=== PATIENT | male | born 1975 | race African-American/Black ===

== ENCOUNTER → 2020-07-06 | Day surgery (SDC) | payer OTHER, MEDICAID ==
[2020-06-30 14:18] LABS: Eosinophils # (auto) 0.1 10 ^3/uL (0-0.8); Eosinophils % (auto) 0.7 % (0.0-7.0); Mean Corpuscular Hemoglobin 27.4 pg (28.0-32.0); Monocytes # (auto) 0.7 10 ^3/uL (0-1.3); Nucleated Red Blood Cells % 0.2 %
[2020-06-30 14:20] LABS: Basophils # (auto) 0 10 ^3/uL (0-0.2); Basophils % (auto) 0.5 % (0.0-2.0); Hematocrit 50.1 % (41.0-53.0); Hemoglobin 16.8 g/dL (13.5-17.5); Lymphocytes # (auto) 3.2 10 ^3/uL (0.4-5.4); Lymphocytes % (auto) 39.2 % (10.0-50.0); Mean Corpuscular Hgb Conc. 33.5 g/dL (32.0-36.0); Mean Corpuscular Volume 81.6 fL (80.0-100.0); Monocytes % (auto) 8.4 % (0.0-12.0); Neutrophils # (auto) 4.1 10 ^3/uL (1.6-8.6); Neutrophils % (auto) 51.2 % (37.0-80.0); Platelet Count (auto) 231 10^3/uL (140-450); Red Blood Cells 6.14 10^6/uL (4.5-5.90); Red Cell Distribution Width 14.2 % (11.8-14.3)
[2020-06-30 14:25] LABS: Urine Bacteria NONE SEEN /hpf (None Seen); Urine Blood Negative /uL (Negative); Urine WBC 6 /hpf (0 - 3)
[2020-06-30 14:26] LABS: INR 1.04 (0.9-1.15); Partial Thromboplastin Time 30.5 sec (23.0-31.2)
[2020-06-30 14:28] LABS: Albumin 4.2 g/dL (3.4-5.0); Calcium 8.8 mg/dL (8.5-10.1)
[2020-06-30 14:32] LABS: BUN/Creatinine Ratio 9.9; Bilirubin, Total 0.3 mg/dL (0.2-1.0); Total Protein 8.1 g/dL (6.4-8.2)
[~2020-07-06] VITALS: Ht 177.8 cm; Wt 106.6 kg
[~2020-07-06] MED LIST: ASPI81CH39; IBUP200C3 PO; LIDOCAINE 1% HCL (LOCAL ANESTH.) INJ 20ML MDV ONE; LIDOCAINE W/ EPINEPHRINE 1% 20ML VIAL ONE; MIDAZOLAM HCL 1MG/1ML-2 ML VIAL ONE; NEOMYCIN-BACITRACIN-POLYM 15GM TOP OINT TOP ONE; ONDANSETRON HCL 4 MG/2 ML VIAL ONE; PROPOFOL 10 MG/ML 20 ML IV ONE; SODIUM CHLORIDE LOCK 10 ML ONE; SUCCINYLCHOLINE CHLORIDE 20 MG/ML 10ML VIAL IV ONE; ceFAZolin 1GM/50ML 50 ML IV ONE; fentaNYL CITRATE 100 MCG/2 ML VL ONE
[2020-07-06 09:50] VITALS: BP 109/65
== END | disposition home or self-care (01) ==
LOC: SUR 07:33
PROVIDERS: ATTEND Urology
DX: Z30.2 Encounter for sterilization (principal); E66.9 Obesity, unspecified; Z20.828 Contact with and (suspected) exposure to other viral communicable diseases; Z79.899 Other long term (current) drug therapy; Z98.890 Other specified postprocedural states; Z68.32 Body mass index [BMI] 32.0-32.9, adult
CPT/HCPCS: 36415; 55250; 80053; 81001; 85025; 85610; 85730; 88302; J0330; J0690; J2001; J2250; J2405; J2704; J3010; U0003

== ENCOUNTER 2020-09-15 13:03 | Inpatient (IN) | payer OTHER, MEDICAID ==
[~2020-09-15] VITALS: Ht 182.9 cm; Wt 100.8 kg
[~2020-09-15 13:03] MED LIST changes: -LIDOCAINE 1% HCL (LOCAL ANESTH.) INJ 20ML MDV ONE; -LIDOCAINE W/ EPINEPHRINE 1% 20ML VIAL ONE; -MIDAZOLAM HCL 1MG/1ML-2 ML VIAL ONE; -NEOMYCIN-BACITRACIN-POLYM 15GM TOP OINT TOP ONE; -ONDANSETRON HCL 4 MG/2 ML VIAL ONE; -PROPOFOL 10 MG/ML 20 ML IV ONE; -SODIUM CHLORIDE LOCK 10 ML ONE; -SUCCINYLCHOLINE CHLORIDE 20 MG/ML 10ML VIAL IV ONE; -ceFAZolin 1GM/50ML 50 ML IV ONE; -fentaNYL CITRATE 100 MCG/2 ML VL ONE
[2020-09-15 14:27] LABS: Basophils # (auto) 0 10 ^3/uL (0-0.2); Basophils % (auto) 0.5 % (0.0-2.0); Eosinophils # (auto) 0 10 ^3/uL (0-0.8); Hematocrit 44.4 % (41.0-53.0); Hemoglobin 14.9 g/dL (13.5-17.5); Lymphocytes # (auto) 1.2 10 ^3/uL (0.4-5.4); Lymphocytes % (auto) 19.8 % (10.0-50.0); Mean Corpuscular Hemoglobin 27.1 pg (28.0-32.0); Mean Corpuscular Hgb Conc. 33.6 g/dL (32.0-36.0); Mean Corpuscular Volume 80.7 fL (80.0-100.0); Monocytes # (auto) 0.4 10 ^3/uL (0-1.3); Monocytes % (auto) 7.5 % (0.0-12.0); Neutrophils # (auto) 4.2 10 ^3/uL (1.6-8.6); Neutrophils % (auto) 72.2 % (37.0-80.0); Nucleated Red Blood Cells % 0.2 %; Platelet Count (auto) 134 10^3/uL (140-450); Red Cell Distribution Width 14.4 % (11.8-14.3); White Blood Cell 5.8 10^3/uL (4.4-10.8)
[2020-09-15 14:46] LABS: Albumin 3.4 g/dL (3.4-5.0)
[2020-09-15 14:50] LABS: Bilirubin, Total 0.4 mg/dL (0.2-1.0); Total Protein 7.7 g/dL (6.4-8.2)
[2020-09-15] MEDS ORDERED: DexAMETHasone 4 MG TAB PO ONE (15:45)
[2020-09-15] MEDS ORDERED: SODIUM CHLORIDE 0.9% 1,000 ML IVB ONE (15:45)
[2020-09-15] MEDS ORDERED: AZITHROMYCIN 500MG/ 250ML 250 ML IV ONE (15:45)
[2020-09-15] MEDS ORDERED: DexAMETHasone SOD PHOS 10MG/1ML VIAL INJ ONE (15:55)
[2020-09-15] MEDS ORDERED: DexAMETHasone SOD PHOS 10MG/1ML VIAL INJ IV ONE (16:15)
[2020-09-15 18:33] LABS: INR 1.08 (0.9-1.15); Partial Thromboplastin Time 36.7 sec (23.0-31.2)
[2020-09-15 18:40] LABS: Magnesium 2.2 mg/dL (1.6-2.6)
[2020-09-15] MEDS ORDERED: MORPHINE SULF INJ 2 MG/ML SYRINGE 1ML IV PRN ×2 (19:30→23:30)
[2020-09-15] MEDS ORDERED: NITROGLYCERIN 0.4 MG SL TAB SL PRN ×2 (19:30→23:30)
[2020-09-15] MEDS ORDERED: ENOXAPARIN SOD 100 MG/1 ML SYRINGE SC ONE (23:30)
[2020-09-15] MEDS ORDERED: ONDANSETRON HCL 4 MG/2 ML VIAL IV PRN (23:30)
[2020-09-15] MEDS ORDERED: DOCUSATE SOD 100 MG CAP PO PRN (23:30)
[2020-09-15] MEDS ORDERED: REMDESIVIR PER PHARMACY 0 ML IV SCH (23:30)
[2020-09-15] MEDS ORDERED: ALUM & MAG HYDROX-SIMETH LIQ(MAALOX) 30 ML PO PRN (23:30)
[2020-09-15] MEDS ORDERED: VANCOMYCIN PER PHARMACY 0 MG IV SCH (23:30)
[2020-09-15] MEDS ORDERED: PIPERACILLIN-TAZOB 3.375GM 100 ML IV ONE (23:30)
[2020-09-15] MEDS ORDERED: VANCOMYCIN 1GM/250ML 250 ML IV ONE (23:45)
[2020-09-16 01:01] LABS: Basophils # (auto) 0 10 ^3/uL (0-0.2); Basophils % (auto) 0.2 % (0.0-2.0); Eosinophils # (auto) 0 10 ^3/uL (0-0.8); Hematocrit 42.8 % (41.0-53.0); Hemoglobin 13.9 g/dL (13.5-17.5); Lymphocytes # (auto) 0.8 10 ^3/uL (0.4-5.4); Lymphocytes % (auto) 13.4 % (10.0-50.0); Mean Corpuscular Hemoglobin 26.5 pg (28.0-32.0); Mean Corpuscular Hgb Conc. 32.5 g/dL (32.0-36.0); Mean Corpuscular Volume 81.5 fL (80.0-100.0); Monocytes # (auto) 0.4 10 ^3/uL (0-1.3); Monocytes % (auto) 7.4 % (0.0-12.0); Neutrophils # (auto) 4.6 10 ^3/uL (1.6-8.6); Nucleated Red Blood Cells % 0.1 %; Platelet Count (auto) 145 10^3/uL (140-450); Red Blood Cells 5.25 10^6/uL (4.5-5.90); Red Cell Distribution Width 14.6 % (11.8-14.3); White Blood Cell 5.8 10^3/uL (4.4-10.8)
[2020-09-16 03:01] LABS: Calcium 7.8 mg/dL (8.5-10.1); Magnesium 2.5 mg/dL (1.6-2.6); Potassium 4.4 mmol/L (3.5-5.1)
[2020-09-16 03:03] LABS: BUN/Creatinine Ratio 8.3; Bilirubin, Total 0.3 mg/dL (0.2-1.0)
[2020-09-16 03:35] LABS: Cholesterol 125 mg/dL (< 200); HDL Cholesterol 32 mg/dL (40-59); LDL Cholesterol 73 mg/dL (< 100); Triglycerides 107 mg/dL (< 150)
[2020-09-16 03:50] LABS: CRP High Sensitivity 9.8924 mg/dL (< 0.3)
[2020-09-16] MEDS: FUROSEMIDE 20 MG/2 ML VIAL IV SCH ×2 (05:34→17:58)
[2020-09-16] MEDS: PIPERACILLIN-TAZOB 3.375GM 100 ML IV SCH ×3 (05:35→17:59)
[2020-09-16 06:20] LABS: Urine Bacteria NONE SEEN /hpf (None Seen); Urine Blood TRACE /uL (Negative); Urine Specific Gravity 1.015 (1.001-1.035); Urine WBC 2 /hpf (0 - 3)
[2020-09-16 06:36] LABS: Alcohol, Urine < 3.0 mg/dL (0-10); Amphetamine Screen, Urine NEGATIVE (NEGATIVE); Barbiturate Scree,Urine NEGATIVE (NEGATIVE); Benzodiazephine Screen, Urine NEGATIVE (NEGATIVE); Cannabinoid Screen, Urine POSITIVE (NEGATIVE); Cocaine Screen, Urine NEGATIVE (NEGATIVE); Opiate Scree,Urine POSITIVE (NEGATIVE); Phencyclidine Screen, Urine NEGATIVE (NEGATIVE)
[2020-09-16 08:30] LABS: Basophils # (auto) 0 10 ^3/uL (0-0.2); Basophils % (auto) 0.1 % (0.0-2.0); Eosinophils # (auto) 0 10 ^3/uL (0-0.8); Hemoglobin 13.9 g/dL (13.5-17.5); Lymphocytes # (auto) 0.8 10 ^3/uL (0.4-5.4)
[2020-09-16 08:33] LABS: Hematocrit 41.9 % (41.0-53.0); Lymphocytes % (auto) 12.9 % (10.0-50.0); Mean Corpuscular Hemoglobin 26.6 pg (28.0-32.0); Mean Corpuscular Hgb Conc. 33.2 g/dL (32.0-36.0); Mean Corpuscular Volume 80.2 fL (80.0-100.0); Monocytes # (auto) 0.5 10 ^3/uL (0-1.3); Monocytes % (auto) 8.7 % (0.0-12.0); Neutrophils % (auto) 78.3 % (37.0-80.0); Nucleated Red Blood Cells % 0.2 %; Platelet Count (auto) 147 10^3/uL (140-450); Red Blood Cells 5.22 10^6/uL (4.5-5.90); Red Cell Distribution Width 14.5 % (11.8-14.3); White Blood Cell 6.3 10^3/uL (4.4-10.8)
[2020-09-16 08:55] LABS: Potassium 4.2 mmol/L (3.5-5.1)
[2020-09-16 09:02] LABS: Albumin 2.8 g/dL (3.4-5.0); BUN/Creatinine Ratio 9.3; Bilirubin, Total 0.5 mg/dL (0.2-1.0); Calcium 7.9 mg/dL (8.5-10.1); Total Protein 6.8 g/dL (6.4-8.2)
[2020-09-16] MEDS: DexAMETHasone SOD PHOS 10MG/1ML VIAL INJ IV SCH (10:15)
[2020-09-16] MEDS: ASPirin 81 mg TAB PO SCH (10:18)
[2020-09-16] MEDS: FAMOTIDINE (10MG/ML) 2ML VL IV SCH ×2 (10:18→21:55)
[2020-09-16] MEDS: ASCORBIC ACID 1,000 MG TAB PO SCH (10:18)
[2020-09-16] MEDS: ENOXAPARIN SOD 100 MG/1 ML SYRINGE SC SCH ×2 (10:19→22:08)
[2020-09-16] MEDS: CHOLECALCIFEROL (VITD3) 2,000 UNIT CAP PO SCH (10:19)
[2020-09-16] MEDS: BUDESONIDE (INHALATION) 180 MCG IH IN SCH ×2 (10:26→21:52)
[2020-09-16] MEDS: ALBUTEROL SULF HFA 90MCG INH 200DOSE IN PRN ×2 (10:26→21:52)
[2020-09-16] MEDS: VANCOMYCIN 1GM/250ML 250 ML IV SCH ×2 (11:56→21:00)
[2020-09-16] MEDS ORDERED: REMDESIVIR 200 MG in NS 210ml LOADING DOSE ADULT IV ONE (15:00)
[2020-09-16] MEDS: MORPHINE SULF INJ 2 MG/ML SYRINGE 1ML IV PRN (21:56)
[2020-09-16] MEDS: ATORVASTATIN 20 MG TAB PO SCH (22:08)
[2020-09-16] MEDS: ACETAMINOPHEN 500 MG TAB PO PRN (22:23)
[2020-09-17] VITALS (8 sets, daily range): BP systolic 93–114; BP diastolic 53–67
--- NOTE | 2020-09-17 00:34 | NUR ---
Telemetry admit from ER JOLENE SPENCE admitted to Telemetry unit after SBAR received. Patient oriented to José Miguel Fuller, primary RN, unit, room, bed, and unit policies regarding patient care and visiting hours. Patient now on continuous telemetry monitoring, tele box # [[id number]] and telemetry reading on arrival to unit is [SR 82]. Patient placed on bedside oxygen, weighed by bedscale and encouraged to call if they need something. All questions and concerns addressed, patient verbalized understanding. Note: []
[2020-09-17] MEDS: PIPERACILLIN-TAZOB 3.375GM 100 ML IV SCH ×4 (00:55→18:19)
[2020-09-17] MEDS ORDERED: IBUP200C3 PO (01:40)
[2020-09-17] MEDS ORDERED: ASPI-543 PO (01:40)
--- NOTE | 2020-09-17 02:28 | NUR ---
HOSPITALIST Called/paged SECRET SERVICE AGENT ISABELLA called re PATIENT C/O CP @ 05/08, VITALS: BP 115/54, HR 126, RR 24, O2 SAT 92 ON 4L/NC. EKG DONE, SHOWED AFIB MORPHINE GIVEN FOR PAIN, PATIENT FEELING BETTER AFTER THAT. ORDER RECEIVED, LABETALOL 5MG IV ONCE. ORDER READ BACK AND VERIFIED. WILL CARRY IT OUT. Continue care.
[2020-09-17] MEDS: MORPHINE SULF INJ 2 MG/ML SYRINGE 1ML IV PRN (02:36)
--- NOTE | 2020-09-17 02:39 | NUR ---
CALLED TELE MONITOR AND CONFIRMED THAT PATIENT'S A FIB STARTED SINCE 139.
[2020-09-17] MEDS ORDERED: LABETALOL HCL 5 MG/ML 4ML SYRINGE IV ONE (02:45)
[2020-09-17] MEDS: FUROSEMIDE 20 MG/2 ML VIAL IV SCH ×2 (06:03→18:33)
--- NOTE | 2020-09-17 07:45 | NUR ---
Opening Shift Note Assumed care of patient, awake and alert. Pt states he is short of breath as he just went to the bathroom. Stayed in room with patient for five minutes until he restored his breathing pattern back to normal, and pt states he feels better now. Instructed on POC and to calling for assist PRN, will continue to monitor for changes Q1hr and PRN.
--- NOTE | 2020-09-17 08:30 | NUR ---
PT O2 SAT 92% ON 4L. PT RESTING IN BED.
[2020-09-17] MEDS: BUDESONIDE (INHALATION) 180 MCG IH IN SCH ×2 (08:31→19:00)
[2020-09-17] MEDS: VANCOMYCIN 1GM/250ML 250 ML IV SCH ×2 (09:26→20:46)
[2020-09-17] MEDS: ACETAMINOPHEN 500 MG TAB PO PRN (09:27)
[2020-09-17] MEDS: DexAMETHasone SOD PHOS 10MG/1ML VIAL INJ IV SCH (09:30)
[2020-09-17] MEDS: FAMOTIDINE (10MG/ML) 2ML VL IV SCH ×2 (09:30→21:50)
[2020-09-17] MEDS: ASPirin 81 mg TAB PO SCH (09:31)
[2020-09-17] MEDS: ENOXAPARIN SOD 100 MG/1 ML SYRINGE SC SCH ×2 (09:31→21:50)
[2020-09-17] MEDS: CHOLECALCIFEROL (VITD3) 2,000 UNIT CAP PO SCH (09:32)
[2020-09-17] MEDS: ASCORBIC ACID 1,000 MG TAB PO SCH (09:32)
[2020-09-17] MEDS: ALBUTEROL SULF HFA 90MCG INH 200DOSE IN PRN ×2 (10:45→19:00)
[2020-09-17] MEDS ORDERED: METOPROLOL TARTRATE 1MG/1ML-5ML VIAL IV PRN (11:45)
[2020-09-17 12:15] LABS: Basophils # (auto) 0 10 ^3/uL (0-0.2); Basophils % (auto) 0.1 % (0.0-2.0); Eosinophils # (auto) 0 10 ^3/uL (0-0.8); White Blood Cell 9.8 10^3/uL (4.4-10.8)
[2020-09-17 12:17] LABS: Hematocrit 41.2 % (41.0-53.0); Hemoglobin 13.7 g/dL (13.5-17.5); Lymphocytes # (auto) 0.9 10 ^3/uL (0.4-5.4); Lymphocytes % (auto) 9.6 % (10.0-50.0); Mean Corpuscular Hemoglobin 27.2 pg (28.0-32.0); Mean Corpuscular Hgb Conc. 33.3 g/dL (32.0-36.0); Mean Corpuscular Volume 81.6 fL (80.0-100.0); Monocytes # (auto) 0.7 10 ^3/uL (0-1.3); Monocytes % (auto) 6.7 % (0.0-12.0); Neutrophils # (auto) 8.2 10 ^3/uL (1.6-8.6); Neutrophils % (auto) 83.6 % (37.0-80.0); Platelet Count (auto) 181 10^3/uL (140-450); Red Blood Cells 5.05 10^6/uL (4.5-5.90); Red Cell Distribution Width 14.5 % (11.8-14.3)
[2020-09-17 12:26] LABS: Anion Gap 7 (5-15); Blood Urea Nitrogen 14 mg/dL (7-18); Calcium 7.8 mg/dL (8.5-10.1); Carbon Dioxide 27 mmol/L (21-32); Chloride 103 mmol/L (98-107); Glucose 114 mg/dL (74-106); Magnesium 2.6 mg/dL (1.6-2.6); Sodium 137 mmol/L (136-145)
[2020-09-17 12:32] LABS: Alanine Aminotransferase 80 U/L (16-61); Alkaline Phosphatase 50 U/L (45-117); Aspartate Aminotransferase 80 U/L (15-37); BUN/Creatinine Ratio 10.4; Bilirubin, Total 0.5 mg/dL (0.2-1.0); GFR African American 74 mL/min; GFR Non-African American 61 mL/min; Total Protein 7.1 g/dL (6.4-8.2)
[2020-09-17] MEDS: REMDESIVIR 100 MG in SODIUM CHL 0.9% 250 ML IV SCH (15:56)
--- NOTE | 2020-09-17 19:20 | NUR ---
CHANGE OF SHIFT REPORT GIVEN TO ENVIRONMENTAL SERVICES TECH RN. IV ZOSYN INFUSING AT THIS TIME,ENVIRONMENTAL SERVICES TECH RN TO GIVE DOSE OF VANCO ONCE ZOSYN IS COMPLETE. PT RESTING AT THIS TIME, PT STABLE.
--- NOTE | 2020-09-17 19:35 | NUR ---
RECEIVED PATIENT FROM DAY SHIFT RN. PATIENT RESTING IN BED. NO S/S OF DISTRESS NOTED. C/O PAIN ON HIS LEFT ARM @ 8/10. NO PAIN MEDICATION REQUESTED AT THIS TIME. PATIENT UNDERSTOOD HE COULD ASK PAIN MEDICATION IF HE COULD NOT TOLERATE THE PAIN. POC INSTRUCTED AND ENCOURAGED PATENT TO CALL FOR ELECTRICAL CONTINUITY INSPECTOR IF NEEDED. BED IN LOWEST LOCKED POSITION WITH SIDE RAILS UP X 2. CALL WILSON WITHIN REACH. ALARM ON. CONTINUE TO MONITOR FOR CHANGES Q1H AND PRN
[2020-09-17] MEDS: ATORVASTATIN 20 MG TAB PO SCH (21:50)
[2020-09-17] MEDS: HYDROcodone-ACET 5/325MG TAB PO PRN (21:51)
--- NOTE | 2020-09-17 21:51 | NUR ---
PATIENT REQUESTED TO HAVE NORCO FOR PAIN @ 05/08. MEDICATED PATIENT ORDERED. CONTINUE TO MONITOR.
--- NOTE | 2020-09-17 22:30 | NUR ---
REASSESSED PAIN 02/05. CONTINUE TO MONITOR.
[2020-09-18] MEDS: PIPERACILLIN-TAZOB 3.375GM 100 ML IV SCH ×4 (00:03→15:16)
[2020-09-18] MEDS: VANCOMYCIN 1GM/250ML 250 ML IV SCH ×2 (04:39→12:10)
[2020-09-18 05:27] VITALS: BP 115/59
[2020-09-18] MEDS: FUROSEMIDE 20 MG/2 ML VIAL IV SCH (06:06)
[2020-09-18] MEDS: BUDESONIDE (INHALATION) 180 MCG IH IN SCH ×2 (06:33→18:25)
[2020-09-18] MEDS: ALBUTEROL SULF HFA 90MCG INH 200DOSE IN PRN ×2 (06:33→18:25)
[2020-09-18 08:37] VITALS: BP 101/65
[2020-09-18] MEDS ORDERED: POTASSIUM CHL 20 Meq TABLET PO ONE (09:15)
[2020-09-18] MEDS: ENOXAPARIN SOD 100 MG/1 ML SYRINGE SC SCH ×2 (09:48→21:27)
[2020-09-18] MEDS: DexAMETHasone SOD PHOS 10MG/1ML VIAL INJ IV SCH (09:48)
[2020-09-18] MEDS: FAMOTIDINE (10MG/ML) 2ML VL IV SCH ×2 (09:48→21:27)
[2020-09-18] MEDS: CHOLECALCIFEROL (VITD3) 2,000 UNIT CAP PO SCH (09:48)
[2020-09-18] MEDS: ASCORBIC ACID 1,000 MG TAB PO SCH (09:49)
[2020-09-18] MEDS: ASPirin 81 mg TAB PO SCH (09:49)
[2020-09-18] MEDS: LORazepam 0.5 MG TAB PO PRN (10:27)
[2020-09-18] MEDS: HYDROcodone-ACET 5/325MG TAB PO PRN ×2 (10:28→21:37)
--- NOTE | 2020-09-18 12:10 | NUR ---
SPOKE WITH PHARMACIST DANIEL: EDUCATED THAT INDICATION FOR ZOSYN AND VANCO ARE NOT MET, NO POSITIVE CULTURES, OR S/S OF PNEUMONIA. COVID NOT AND INDICATION. INFORMED PATIENT, REFUSED. WILL LET MD KAMARA KNOW.
[2020-09-18 14:23] VITALS: BP 115/79
[2020-09-18] MEDS: REMDESIVIR 100 MG in SODIUM CHL 0.9% 250 ML IV SCH (15:30)
[2020-09-18 16:52] VITALS: BP 116/69
--- NOTE | 2020-09-18 19:50 | NUR ---
OPENING NOTE Received report from day shift RN. Patient is A&O X's 4 with no s/s of distress. Patient is on 5L NC at this time. Patient denies any SOB at this time, only with exertion. Educated patient on POC/to prone as tolerated/use IS that is at bedside and to use call light when in need of any assistance. Patient verbalized understanding. Bed is in lowest/locked position with side rails up X's 2 and call light is within reach of patient.
[2020-09-18] MEDS: ATORVASTATIN 20 MG TAB PO SCH (21:27)
[2020-09-18 22:00] VITALS: BP 123/85
[2020-09-19] VITALS (9 sets, daily range): BP systolic 101–127; BP diastolic 49–80
[2020-09-19] MEDS: PIPERACILLIN-TAZOB 3.375GM 100 ML IV SCH ×4 (06:00→19:47)
[2020-09-19 07:26] LABS: Basophils # (auto) 0 10 ^3/uL (0-0.2); Eosinophils # (auto) 0 10 ^3/uL (0-0.8); Monocytes # (auto) 1.1 10 ^3/uL (0-1.3)
[2020-09-19 07:29] LABS: Basophils % (auto) 0.1 % (0.0-2.0); Hematocrit 41.7 % (41.0-53.0); Lymphocytes % (auto) 12.7 % (10.0-50.0); Mean Corpuscular Hemoglobin 26.9 pg (28.0-32.0); Mean Corpuscular Hgb Conc. 33.5 g/dL (32.0-36.0); Mean Corpuscular Volume 80.1 fL (80.0-100.0); Monocytes % (auto) 13.7 % (0.0-12.0); Neutrophils # (auto) 5.9 10 ^3/uL (1.6-8.6); Neutrophils % (auto) 73.5 % (37.0-80.0); Nucleated Red Blood Cells % 0.3 %; Platelet Count (auto) 260 10^3/uL (140-450); Red Blood Cells 5.21 10^6/uL (4.5-5.90); Red Cell Distribution Width 14.1 % (11.8-14.3); White Blood Cell 8.1 10^3/uL (4.4-10.8)
[2020-09-19 07:40] LABS: Potassium 3.8 mmol/L (3.5-5.1)
[2020-09-19 07:55] LABS: Albumin 2.7 g/dL (3.4-5.0); BUN/Creatinine Ratio 15.5; Bilirubin, Total 0.4 mg/dL (0.2-1.0); CRP High Sensitivity 3.65 mg/dL (< 0.3); Calcium 8.2 mg/dL (8.5-10.1); Total Protein 6.8 g/dL (6.4-8.2)
[2020-09-19] MEDS: FAMOTIDINE (10MG/ML) 2ML VL IV SCH ×2 (10:29→22:02)
[2020-09-19] MEDS: DexAMETHasone SOD PHOS 10MG/1ML VIAL INJ IV SCH (10:29)
[2020-09-19] MEDS: ASCORBIC ACID 1,000 MG TAB PO SCH (10:31)
[2020-09-19] MEDS: FUROSEMIDE 20 MG/2 ML VIAL IV SCH (10:31)
[2020-09-19] MEDS: ASPirin 81 mg TAB PO SCH (10:32)
[2020-09-19] MEDS: CHOLECALCIFEROL (VITD3) 2,000 UNIT CAP PO SCH (10:32)
[2020-09-19] MEDS: ENOXAPARIN SOD 100 MG/1 ML SYRINGE SC SCH ×2 (10:34→22:03)
--- NOTE | 2020-09-19 11:28 | NUR ---
Assessment Patient is a 44 year old male, who is alert and oriented, his cognitive abilities are intact. Patient states that he can do all ADL's and ambulate independently. Patient stated that he unemployed and receives docplanner as income. Patient states that he lives with his , children and mother, he has plans to return home post discharge. Patient stated that his will provide transportation post discharge. Patient stated that his and mother are his support system. Patient is receptive to receive Advance Directive forms. Discharge planning: Patient will return home post discharge, patient will follow up care with his PCP post discharge. SW will provide Advance Directive prior to discharge. There are no other discharge needs to address at the moment. Addendum: 09/19/20 at 1136 by JERSEY MARIN Amended: Links added.
--- NOTE | 2020-09-19 11:29 | NUR ---
Nutrition Assessment Est energy needs 2701-9848 kcal (14-18 kcal/kg BW 102.4kg) Est protein needs 81-97g (1-1.2g/kg IBW 80.9kg) Will monitor and reassess prn. Addendum: 09/19/20 at [address] Amended: Links added.
--- NOTE | 2020-09-19 14:18 | NUR ---
DOCTOR TURNER AT BEDSIDE DISCUSSING POC PATIENT VERBALIZES UNDERSTANDING AND AGREES WITH POC.
[2020-09-19] MEDS: HYDROcodone-ACET 5/325MG TAB PO PRN (16:18)
[2020-09-19] MEDS: REMDESIVIR 100 MG in SODIUM CHL 0.9% 250 ML IV SCH (17:45)
[2020-09-19] MEDS: Ensure HIGH Protein Chocolate 8oz Bottle PO SCH (18:00)
--- NOTE | 2020-09-19 19:00 | NUR ---
REMDESIVIR V/S ZIB251/49 HR 90 15 MINUTE-102/65 75 HR POST 117/67 HR 80 NO S/S OF DISTRESS NOTED
[2020-09-19] MEDS: BUDESONIDE (INHALATION) 180 MCG IH IN SCH (19:27)
--- NOTE | 2020-09-19 19:27 | NUR ---
PT SEEN AT THIS TIME. ALB 2 PUFFS GIVEN VIA SPACER AND PULM 360 MCG GIVEN WITH NO ADVERSE REACTIONS. PT TOLERATED WELL. HR 97 POX 98 RR 22.
[2020-09-19] MEDS: ALBUTEROL SULF HFA 90MCG INH 200DOSE IN PRN (19:34)
[2020-09-19] MEDS: ATORVASTATIN 20 MG TAB PO SCH (22:03)
[2020-09-20] MEDS: PIPERACILLIN-TAZOB 3.375GM 100 ML IV SCH ×4 (00:51→18:49)
[2020-09-20 04:00] VITALS: BP 116/67
[2020-09-20] MEDS: ALBUTEROL SULF HFA 90MCG INH 200DOSE IN PRN ×2 (06:47→19:43)
[2020-09-20] MEDS: BUDESONIDE (INHALATION) 180 MCG IH IN SCH ×2 (06:47→19:43)
[2020-09-20] MEDS: Ensure HIGH Protein Chocolate 8oz Bottle PO SCH ×3 (08:00→18:00)
[2020-09-20 09:00] VITALS: BP 110/74
[2020-09-20] MEDS: FAMOTIDINE (10MG/ML) 2ML VL IV SCH ×2 (10:17→21:18)
[2020-09-20] MEDS: DexAMETHasone SOD PHOS 10MG/1ML VIAL INJ IV SCH (10:17)
[2020-09-20] MEDS: CHOLECALCIFEROL (VITD3) 2,000 UNIT CAP PO SCH (10:18)
[2020-09-20] MEDS: FUROSEMIDE 20 MG/2 ML VIAL IV SCH (10:18)
[2020-09-20] MEDS: ASPirin 81 mg TAB PO SCH (10:18)
[2020-09-20] MEDS: ASCORBIC ACID 1,000 MG TAB PO SCH (10:19)
[2020-09-20] MEDS: ENOXAPARIN SOD 100 MG/1 ML SYRINGE SC SCH ×2 (10:20→21:17)
[2020-09-20] MEDS ORDERED: ACETAMINOPHEN 500 MG TAB PO PRN (11:45)
[2020-09-20 13:00] VITALS: BP 101/63
[2020-09-20] MEDS: REMDESIVIR 100 MG in SODIUM CHL 0.9% 250 ML IV SCH (15:45)
[2020-09-20 17:00] VITALS: BP 115/68
--- NOTE | 2020-09-20 17:10 | NUR ---
REMDESIVIR V/S PRE- 124/75 HR 88 15 MINUTES-115/68 80 HR POST REMDESIVIR 107/60 HR 78 NO S/S OF DISTRESS NOTED
[2020-09-20 21:00] VITALS: BP 119/77
[2020-09-20] MEDS: OXYCODONE W/ ACETAMINOPHEN 5/325MG TABLET PO PRN (21:18)
[2020-09-20] MEDS: ATORVASTATIN 20 MG TAB PO SCH (21:18)
[2020-09-21] MEDS: PIPERACILLIN-TAZOB 3.375GM 100 ML IV SCH ×3 (01:31→13:42)
[2020-09-21] MEDS: OXYCODONE W/ ACETAMINOPHEN 5/325MG TABLET PO PRN ×2 (06:18→10:18)
--- NOTE | 2020-09-21 06:39 | NUR ---
Patient refused pain medication. Patient said he will take medication later after breakfast . Will continue to monitor.
[2020-09-21] MEDS: BUDESONIDE (INHALATION) 180 MCG IH IN SCH ×2 (07:26→21:14)
[2020-09-21] MEDS: ALBUTEROL SULF HFA 90MCG INH 200DOSE IN PRN ×2 (07:26→21:14)
[2020-09-21 07:47] LABS: Calcium 8.7 mg/dL (8.5-10.1); Potassium 3.5 mmol/L (3.5-5.1)
[2020-09-21 07:49] LABS: BUN/Creatinine Ratio 13.6
[2020-09-21 08:00] VITALS: BP 97/52
[2020-09-21] MEDS: Ensure HIGH Protein Chocolate 8oz Bottle PO SCH ×3 (08:00→18:00)
[2020-09-21 08:05] LABS: Basophils # (auto) 0 10 ^3/uL (0-0.2); Eosinophils # (auto) 0 10 ^3/uL (0-0.8); Lymphocytes # (auto) 1.6 10 ^3/uL (0.4-5.4); Nucleated Red Blood Cells % 0.2 %; Red Cell Distribution Width 14.3 % (11.8-14.3)
[2020-09-21 08:08] LABS: Basophils % (auto) 0.1 % (0.0-2.0); Hematocrit 44.2 % (41.0-53.0); Hemoglobin 14.9 g/dL (13.5-17.5); Lymphocytes % (auto) 14.9 % (10.0-50.0); Mean Corpuscular Hemoglobin 27.1 pg (28.0-32.0); Mean Corpuscular Hgb Conc. 33.6 g/dL (32.0-36.0); Mean Corpuscular Volume 80.6 fL (80.0-100.0); Monocytes # (auto) 1.1 10 ^3/uL (0-1.3); Monocytes % (auto) 10.1 % (0.0-12.0); Neutrophils # (auto) 7.9 10 ^3/uL (1.6-8.6); Neutrophils % (auto) 74.9 % (37.0-80.0); Platelet Count (auto) 368 10^3/uL (140-450); Red Blood Cells 5.49 10^6/uL (4.5-5.90)
[2020-09-21 08:12] LABS: White Blood Cell 10.6 10^3/uL (4.4-10.8)
[2020-09-21] MEDS: ENOXAPARIN SOD 100 MG/1 ML SYRINGE SC SCH ×2 (10:13→20:55)
[2020-09-21] MEDS: DexAMETHasone SOD PHOS 10MG/1ML VIAL INJ IV SCH (10:13)
[2020-09-21] MEDS: FAMOTIDINE (10MG/ML) 2ML VL IV SCH ×2 (10:14→20:55)
[2020-09-21] MEDS: FUROSEMIDE 20 MG/2 ML VIAL IV SCH (10:16)
[2020-09-21] MEDS: ASPirin 81 mg TAB PO SCH (10:17)
[2020-09-21] MEDS: CHOLECALCIFEROL (VITD3) 2,000 UNIT CAP PO SCH (10:18)
[2020-09-21] MEDS: ASCORBIC ACID 1,000 MG TAB PO SCH (10:18)
[2020-09-21 16:00] VITALS: BP 109/62
--- NOTE | 2020-09-21 19:15 | NUR ---
Opening Shift Note Assumed care of patient, awake and alert laying in the low fowlers position with 11L OXYMIZER in place with no S/S of distress/SOB or pain. oxygen saturation 95% at this time. Bed locked in the lowest position, side rails up X2, call light within reach. Instructed on POC and to call for assist PRN, will continue to monitor for changes Q1hr and PRN.
[2020-09-21] MEDS: MORPHINE SULF INJ 2 MG/ML SYRINGE 1ML IV PRN (19:56)
[2020-09-21] MEDS: ATORVASTATIN 20 MG TAB PO SCH (20:54)
[2020-09-21] MEDS: CEFEPIME 1 GM in NS 0.9% 50 ML IV SCH (20:54)
[2020-09-21 21:55] VITALS: BP 106/62
--- NOTE | 2020-09-22 02:20 | NUR ---
ROUNDS PATIENT SITTING AT THE BED SIDE. 11L OXYMIZER IN PLACE WITH NO SIGNS OF SOB/ DISTRESS AT THIS TIME.
[2020-09-22 05:00] VITALS: BP 84/51
[2020-09-22] MEDS: CEFEPIME 1 GM in NS 0.9% 50 ML IV SCH ×3 (05:16→20:52)
[2020-09-22 06:28] LABS: Potassium 3.6 mmol/L (3.5-5.1)
[2020-09-22 06:40] LABS: BUN/Creatinine Ratio 14.8; Bilirubin, Total 0.6 mg/dL (0.2-1.0); Calcium 8.8 mg/dL (8.5-10.1); Total Protein 7.4 g/dL (6.4-8.2)
--- NOTE | 2020-09-22 07:32 | NUR ---
CARE ENDORSED TO DAY SHIFT RN. PATIENT RESTING ON HIS RIGHT SIDE WITH 11L OXYMIZER. NO SIGNS OF SOB/ DISTRESS AT THIS TIME/
--- NOTE | 2020-09-22 07:55 | NUR ---
Received patient from shift foreman RN. Patient awake resting at bedside, complains of left shoulder pain 10/10, but refuse pain medication. When asked what he took at home for the pain, patient stated that nothing, he just lives with it. Education provided regarding pain management. will informed Dr. Maier. Patient is on 11 L of oximizer sat. above 92%, no s/s of distress. call light within reach, bed in low position. will continue patient care.
[2020-09-22] MEDS: Ensure HIGH Protein Chocolate 8oz Bottle PO SCH ×3 (08:00→20:51)
[2020-09-22 09:33] VITALS: BP 94/51
[2020-09-22] MEDS: FAMOTIDINE (10MG/ML) 2ML VL IV SCH ×2 (10:47→20:52)
[2020-09-22] MEDS: ENOXAPARIN SOD 100 MG/1 ML SYRINGE SC SCH ×2 (10:47→20:52)
[2020-09-22] MEDS: DexAMETHasone SOD PHOS 10MG/1ML VIAL INJ IV SCH (10:49)
[2020-09-22] MEDS: ASPirin 81 mg TAB PO SCH (10:50)
[2020-09-22] MEDS: ASCORBIC ACID 1,000 MG TAB PO SCH (10:51)
[2020-09-22] MEDS: CHOLECALCIFEROL (VITD3) 2,000 UNIT CAP PO SCH (10:51)
[2020-09-22 16:25] VITALS: BP 106/61
--- NOTE | 2020-09-22 17:21 | NUR ---
Patient has been chronic pain on left shoulder, pain is 8/10, but patient refused pain medications. Education provided.
--- NOTE | 2020-09-22 19:10 | NUR ---
Opening Shift Note Assumed care of patient, awake and alert. Patient sitting at the bedside. , 11L oxymizer in place with no S/S of distress/SOB or pain. Bed locked in the lowest position, side rails up X2, call light within reach. Instructed on POC and to call for assist PRN, will continue to monitor for changes Q1hr and PRN.
[2020-09-22] MEDS: ATORVASTATIN 20 MG TAB PO SCH (20:52)
[2020-09-22] MEDS: LORazepam 0.5 MG TAB PO PRN (21:05)
[2020-09-22 22:48] VITALS: BP 132/60
--- NOTE | 2020-09-23 00:22 | NUR ---
ROUNDS PATIENT IN THE LOW FOWLERS POSITION WITH EYES CLOSED. 11L OXYMIZER IN PLACE WITH BILATERAL CHEST RISE AND FALL. NO SIGNS OF DISTRESS/ SOB AT THIS TIME.
[2020-09-23 04:48] VITALS: BP 113/61
[2020-09-23] MEDS: CEFEPIME 1 GM in NS 0.9% 50 ML IV SCH ×3 (05:02→22:39)
--- NOTE | 2020-09-23 07:10 | NUR ---
CLOSING NOTES CARE ENDORSED TO DAY SHIFT RN. PATIENT IN THE SEMIFOWLERS POSITION WITH 11L OXYMIZER IN PLACE. BILATERAL CHEST RISE AND FALL WITH NO SIGNS OF DISTRESS AT THIS TIME. BED LOCKED IN THE LOWEST POSITION, SIDE RAILS UP X2, CALL LIGHT WITHIN REACH.
[2020-09-23 08:00] VITALS: BP 112/67
[2020-09-23] MEDS: Ensure HIGH Protein Chocolate 8oz Bottle PO SCH ×3 (09:32→18:05)
[2020-09-23] MEDS: ASPirin 81 mg TAB PO SCH (09:33)
[2020-09-23] MEDS: DexAMETHasone SOD PHOS 10MG/1ML VIAL INJ IV SCH (09:33)
[2020-09-23] MEDS: ASCORBIC ACID 1,000 MG TAB PO SCH (09:33)
[2020-09-23] MEDS: FAMOTIDINE (10MG/ML) 2ML VL IV SCH ×2 (09:33→22:40)
[2020-09-23] MEDS: CHOLECALCIFEROL (VITD3) 2,000 UNIT CAP PO SCH (09:34)
[2020-09-23] MEDS: ENOXAPARIN SOD 100 MG/1 ML SYRINGE SC SCH ×2 (09:34→22:40)
[2020-09-23] MEDS: BUDESONIDE (INHALATION) 180 MCG IH IN SCH (10:00)
--- NOTE | 2020-09-23 11:24 | NUR ---
Taper down oxygen to 6 L of NC, o2 sat 90-92 %, patient tolerated well.
[2020-09-23 16:00] VITALS: BP 118/67
--- NOTE | 2020-09-23 20:00 | NUR ---
Opening Shift Note Assumed care of patient, awake and alert. patient complaint of 10/10 pain on left arm. Instructed on POC and to call for assist PRN, will continue to monitor for changes Q1hr and PRN.
[2020-09-23] MEDS: OXYCODONE W/ ACETAMINOPHEN 5/325MG TABLET PO PRN (20:47)
[2020-09-23] MEDS: ATORVASTATIN 20 MG TAB PO SCH (22:40)
[2020-09-24] VITALS: BP 117/67
[2020-09-24] MEDS: CEFEPIME 1 GM in NS 0.9% 50 ML IV SCH ×2 (06:08→13:53)
[2020-09-24 08:00] VITALS: BP 91/61
[2020-09-24] MEDS: Ensure HIGH Protein Chocolate 8oz Bottle PO SCH ×2 (08:40→13:10)
[2020-09-24] MEDS: BUDESONIDE (INHALATION) 180 MCG IH IN SCH ×3 (09:00→10:00)
[2020-09-24] MEDS: DexAMETHasone SOD PHOS 10MG/1ML VIAL INJ IV SCH (09:05)
[2020-09-24] MEDS: ENOXAPARIN SOD 100 MG/1 ML SYRINGE SC SCH (09:05)
[2020-09-24] MEDS: CHOLECALCIFEROL (VITD3) 2,000 UNIT CAP PO SCH (09:05)
[2020-09-24] MEDS: ASCORBIC ACID 1,000 MG TAB PO SCH (09:05)
[2020-09-24] MEDS: ASPirin 81 mg TAB PO SCH (09:05)
[2020-09-24] MEDS: FAMOTIDINE (10MG/ML) 2ML VL IV SCH (09:05)
--- NOTE | 2020-09-24 14:10 | NUR ---
Nutrition Followup Note Wt 100.8kg Pt is covid positive in covid isolation. Pt is with oxygen requiring less oxygen today per Rn note. Pt is with a Regular diet with an improved appetite aeb pt with 82.5% po intake 09/22 per RN note, 50-75% po intake prior to increased po intake. Est energy needs 6138-5274 kcal (14-18 kcal/kg BW 102.4kg) Est protein needs 81-97g (1-1.2g/kg IBW 80.9kg) Will monitor and reassess prn. Labs: GLUC 109H, Alb 3.0L BM: pt with 2 BMs 09/22 per Rn note Skin: BS 21 low risk, full details in healthcare liaison note PES partially resolved: Inadequate oral intake r/t current medical condition aeb pt with 25-50% po intake per RN note, pt reports appetite is horrible Comments 1) Continue to monitor po intake, labs, skin 2) refer pt to [facility] on DC 3) Continue current plan of care Expected Outcomes/Goals: 1) Consider adding Ensure HP TID 2) pt po intake to continue to improve and pt to have >75% po intake 3) pt to gain no further wt while in hospital 4) f/u 3-5 days
[2020-09-24] MEDS ORDERED: AZIT500T66 PO (15:04)
[2020-09-24] MEDS ORDERED: ATOR20TA50 PO (15:04)
[2020-09-24] MEDS ORDERED: ASPI81CH43 PO (15:04)
[2020-09-24] MEDS ORDERED: DOCU100C8 PO (15:04)
[2020-09-24] MEDS ORDERED: FAMO20TA10 PO (15:04)
[2020-09-24] MEDS ORDERED: GICOCKTAIL PO (15:04)
[2020-09-24] MEDS ORDERED: ASCO10003 PO (15:04)
[2020-09-24] MEDS ORDERED: CHOL1CAP47 PO (15:04)
[2020-09-24] MEDS ORDERED: NUTR-559 PO (15:04)
[2020-09-24] MEDS ORDERED: ALBU108A5 IN (15:04)
[2020-09-24 16:02] VITALS: BP 96/56
--- NOTE | 2020-09-24 16:28 | NUR ---
Per Dr. Armstrong to cancel ABG, noted and carried it out.
[2020-09-24 16:38] VITALS: BP 121/75
--- NOTE | 2020-09-24 17:35 | NUR ---
Discharge instructions given as ordered. Encourage to follow up with PMD (Follow up with Dr. man #[phone] Address : [address] [place] [address], [address], [place], [address]) as instructed. All questions and concerns addressed. Patient verbalized understanding. Medication reconciliation form completed and copy given to patient. IV removed with catheter intact, pressure dressing applied, kline catheter removed. Telemetry unit returned to ICU. Patient taken to vehicle via wheelchair with all personal belongings, accompanied by staff and family member. No distress noted at time of departure.
== END 2020-09-24 17:38 | disposition home or self-care (01) | DRG 871 ==
LOC: ER 13:03 → OVERFLOW 13:04 → TELE-EAST 09-16 23:48
PROVIDERS: ADMIT Hospitalist; ATTEND Internal Medicine
PROC: XW033E5 Introduction of Remdesivir Anti-infective into Peripheral Vein, Percutaneous Approach, New Technology Group 5 (ICD-10-PCS; 2020-09-15)
PROC: XW13325 Transfusion of Convalescent Plasma (Nonautologous) into Peripheral Vein, Percutaneous Approach, New Technology Group 5 (ICD-10-PCS; principal; 2020-09-19)
DX: A41.89 Other specified sepsis (principal); U07.1 COVID-19; J96.01 Acute respiratory failure with hypoxia; J12.89 Other viral pneumonia; E87.1 Hypo-osmolality and hyponatremia; E44.1 Mild protein-calorie malnutrition; D68.59 Other primary thrombophilia; R79.89 Other specified abnormal findings of blood chemistry; I48.91 Unspecified atrial fibrillation; E78.5 Hyperlipidemia, unspecified; E66.9 Obesity, unspecified; Z88.3 Allergy status to other anti-infective agents; Z68.30 Body mass index [BMI] 30.0-30.9, adult; G83.24 Monoplegia of upper limb affecting left nondominant side; Z82.49 Family history of ischemic heart disease and other diseases of the circulatory system
CPT/HCPCS: 36415; 71045; 80048; 80053; 80061; 80202; 80307; 81001; 82565; 82728; 83036; 83605; 83615; 83735; 83880; 84100; 84443; 84484; 85025; 85379; 85610; 85730; 86141; 86710; 86850; 86900; 86901; 87040; 87086; 87426; 87804; 93005; 93306; 94640; 96365; 96366; 96375; G0378; J1100; J2405; J2543; J3490

== ENCOUNTER 2025-07-15 10:01 | Day surgery (SDC) | payer OTHER, MEDICAID ==
[2025-07-13 14:02] LABS: Hematocrit 49.4 % (41.0-53.0); Hemoglobin 16.2 g/dL (13.5-17.5); Mean Corpuscular Hemoglobin 26.7 pg (28.0-32.0); Mean Corpuscular Volume 81.3 fL (80.0-100.0); Nucleated Red Blood Cells % 0.2 %
[2025-07-13 14:15] LABS: INR 1.08 (0.9-1.15); Partial Thromboplastin Time 31.4 SEC (24.5-34.5); Prothrombin Time 11.4 sec (9.3-11.8)
[2025-07-13 14:31] LABS: Alanine Aminotransferase 21 U/L (7-40); Alkaline Phosphatase 65 U/L (46-116); Calcium 9.3 mg/dL (8.7-10.4)
[2025-07-13 14:32] LABS: Albumin 4.6 g/dL (3.2-4.8); Anion Gap 9 (5-15); BUN/Creatinine Ratio 5.6 (10.0-20.0); Bilirubin, Total 0.4 mg/dL (0.2-1.0); Carbon Dioxide 27 mmol/L (20-31); Chloride 105 mmol/L (98-107); Glucose 99 mg/dL (74-106); Potassium 4.0 mmol/L (3.5-5.1); Sodium 141 mmol/L (136-145); Total Protein 7.5 g/dL (5.7-8.2)
[2025-07-13 14:49] LABS: Blood Urea Nitrogen 7 mg/dL (9-23)
[2025-07-14 09:10] LABS: Urine Protein, UAD Negative (Negative)
[~2025-07-15] VITALS: Ht 177.8 cm; Wt 104.3 kg
[~2025-07-15 10:01] MED LIST changes: +ALBU108A5 IN; +ASCO10003 PO; -ASPI81CH39; +ASPI81CH43 PO; +ATOR20TA50 PO; +AZIT500T66 PO; +CHOL1CAP47 PO; +DOCU-265 PO; +FAMO20TA10 PO; +GICOCKTAIL PO; -IBUP200C3 PO; +NUTR-559 PO
[2025-07-15] MEDS ORDERED: KETAMINE 50mg/ML 1ml syringe ONE (10:50)
[2025-07-15] MEDS ORDERED: MIDAZOLAM HCL 2MG/2ML 2ml VIAL (1mg/ml) ONE ×2 (10:50→11:23)
[2025-07-15] MEDS ORDERED: SODIUM CHLORIDE LOCK 0 ML ONE (10:50)
[2025-07-15] MEDS ORDERED: ONDANSETRON HCL 4 MG/2 ML VIAL ONE (10:50)
[2025-07-15] MEDS ORDERED: LIDOCAINE 1% INJ PF 5ML AMP ONE (10:50)
[2025-07-15] MEDS ORDERED: PROPOFOL 10 MG/ML 20 ML IV ONE ×2 (10:50→11:24)
[2025-07-15] MEDS ORDERED: fentaNYL CITRATE 100 MCG/2 ML VL ONE (10:54)
[2025-07-15 11:50] VITALS: TEMP 97.4; O2SAT 98
--- NOTE | 2025-07-15 11:57 | DVHOP2 ---
Operative Report DATE OF OPERATION: 07/15/25 PROCEDURE: Colonoscopy with hot snare polypectomy. PREOPERATIVE INDICATION: The patient is a 49 -year-old male undergoing colonoscopy for colon cancer screening POSTOPERATIVE DIAGNOSES: 1. 2 cm polyp with a short stalk was seen in the mid transverse colon and removed completely via hot snare polypectomy 2. Two other distal transverse colon polyps were seen less than 5 mm in size and one was removed via hot snare polypectomy and the other by cold biopsy forceps 3. Trace internal hemorrhoids otherwise normal examination up to the cecum PROCEDURE PERFORMED BY: Anjana Lam M.D. SCOPE: Olympus videocolonoscope. ASA CLASS: 3 PREOPERATIVE MEDICATIONS: Mac Dr. Jose abbasi PROCEDURE IN DETAIL: After obtaining an informed consent, the patient was placed on left lateral decubitus position. He was then sedated with the above medications. A rectal examination was performed that was normal. The colonoscope was then passed through the anus into the rectosigmoid and through the descending, transverse, and ascending colon up to the cecum with visualization of the appendiceal orifice, base of the cecum and the ileocecal valve. The colonoscope was then withdrawn. No masses colitis or diverticular disease were seen Patient had a 2 cm polyp with a short stalk seen in the mid transverse colon This was removed completely via hot snare polypectomy and the specimens were ret rieved Two adjacent smaller distal transverse colon polyps were seen. One was removed via hot snare polypectomy and the other was removed via cold biopsy forceps. These were less than 3 mm in size The patient tolerated the procedure well without difficulty. WITHDRAWAL TIME: 12 minutes QUALITY OF THE PREP: [place] Bowel Prep score: 9. COMPLICATIONS : None SPECIMENS: Transverse colon polyps x3 DISPOSITION: Stable D/C to home PLAN: 1. Repeat colonoscopy base on biopsy result likely in three years 2. Resume GI soft diet advance as tolerated 3. Avoid aspirin NSAIDs blood thinners for one week 4. Outpatient follow up with me in 4-6 weeks to review results and discuss further management ANJANA LAM MD Jul 15, 2025 11:57
[2025-07-15 12:30] VITALS: BP 112/73; PULSE 60; RESP 19; O2SAT 96
== END 2025-07-15 11:50 | disposition home or self-care (01) ==
LOC: GI 10:01
PROVIDERS: ATTEND Internal Medicine Gastroenterology
DX: K92.1 Melena (principal); D12.3 Benign neoplasm of transverse colon; K64.8 Other hemorrhoids; I10 Essential (primary) hypertension; Z98.890 Other specified postprocedural states; Z79.899 Other long term (current) drug therapy
CPT/HCPCS: 36415; 45380; 45385; 80053; 81001; 85025; 85610; 85730; 88305; J2250; J2704; J7030; J2405